=== PATIENT | male | born 2000 | race Hispanic/Latino ===

== ENCOUNTER 2024-04-23 03:52 | Emergency (ER) | payer SELFPAY ==
[~2024-04-23] VITALS: Ht 182.9 cm; Wt 104.3 kg
[2024-04-23 03:53] VITALS: PULSE 79; RESP 16; TEMP 97.6
[2024-04-23 04:24] VITALS: BP 125/65; PULSE 79; RESP 16; TEMP 97.6; O2SAT 98
== END 2024-04-23 04:33 | disposition home or self-care (01) ==
LOC: FSED 03:56
DX: R00.2 Palpitations (principal); F17.210 Nicotine dependence, cigarettes, uncomplicated
CPT/HCPCS: 93005; 99283